=== PATIENT | female | born 1960 | race Caucasian/White ===

== ENCOUNTER 2017-11-26 22:21 | Emergency (ER) | payer MEDICAID ==
[2017-11-26 23:32] LABS: HEMATOCRIT 27.3 % (36.0-48.0); HEMOGLOBIN 8.9 g/dL (12-16); LYMPHOCYTES 11.7 % (15-50); MCHC 32.6 g/dL (31.0-37.0); MCV 88.9 fL (80.0-100.0); MEAN PLATELET VOLUME 8.4 fL (7.4-10.4); NEUTROPHILS 83.4 % (40-80); PLATELET COUNT 254 10x3/uL (130-400); RBC 3.07 10x6/uL (4.00-5.40); RDW 15.3 % (11.5-14.5)
[2017-11-26 23:47] LABS: ALBUMIN 3.2 g/dL (3.4-5.0); ALKALINE PHOSPHATASE 80 U/L (46-116); ALT (SGPT) 52 U/L (10-68); BILIRUBIN - TOTAL 0.16 mg/dL (0.2-1.3); CALC OSMOLALITY 287 mosm/kg (275-300); CALCIUM 8.6 mg/dL (8.5-10.1); CARBON DIOXIDE 20.7 mmol/L (21.0-32.0); CHLORIDE - SERUM 105 mmol/L (98-107); CREATININE - SERUM 2.1 mg/dL (0.6-1.3); GLUCOSE 178 mg/dL (74-106); POTASSIUM - SERUM 4.5 mmol/L (3.5-5.1); PROTEIN - SERUM 6.8 g/dL (6.4-8.2); SODIUM 138 mmol/L (136-145); UREA NITROGEN 34 mg/dL (7-18); eGFR NON AFRICAN AMERICAN 26 mL/min (90-120)
[2017-11-26 23:57] LABS: CKMB 0.3 U/L (0.0-3.6); CREATINE KINASE 24 UL (21-215); TROPONIN-I < 0.017 ng/mL (0.000-0.060)
== END 2017-11-27 02:40 | disposition home or self-care (01) ==
LOC: D.ER 22:21
PROVIDERS: Family Medicine
DX: R07.89 Other chest pain (principal); I71.00 Dissection of unspecified site of aorta; F15.10 Other stimulant abuse, uncomplicated; I10 Essential (primary) hypertension; E11.9 Type 2 diabetes mellitus without complications; Z79.4 Long term (current) use of insulin

== ENCOUNTER → 2018-02-05 10:05 | Outpatient (CLI) | payer MEDICAID | END | disposition home or self-care (01) | LOC: D.RAD 10:05 | DX: M54.5 Low back pain (principal); M54.6 Pain in thoracic spine ==

== ENCOUNTER 2018-04-03 19:54 | Emergency (ER) | payer MEDICAID ==
[2018-04-03 22:55] LABS: BASOPHILS 0 % (0-2); EOSINOPHILS 0.4 % (0-7); HEMATOCRIT 33.1 % (36.0-48.0); HEMOGLOBIN 9.7 g/dL (12-16); IMMATURE GRANULOCYTES 0.9 % (0-5); LYMPHOCYTES 12.7 % (15-50); MCH 23.8 pg (26.0-34.0); MCHC 29.3 g/dL (31.0-37.0); MCV 81.3 fL (80.0-100.0); MEAN PLATELET VOLUME 8.9 fL (7.4-10.4); MONOCYTES 4.7 % (2-11); NEUTROPHILS 81.3 % (40-80); PLATELET COUNT 264 10x3/uL (130-400); RBC 4.07 10x6/uL (4.00-5.40); RDW 20.1 % (11.5-14.5); WBC 7.8 10x3/uL (4.8-10.8)
[2018-04-03 23:11] LABS: APTT 22.7 SECONDS (22.8-39.4); INR 0.97 (0.85-1.17); PROTIME 12.5 SECONDS (11.6-15.0)
[2018-04-03 23:12] LABS: D-DIMER-QUANTITATIVE 0.38 ug/mLFEU (0.20-0.54)
[2018-04-03 23:26] LABS: ALBUMIN 3.1 g/dL (3.4-5.0); ALKALINE PHOSPHATASE 73 U/L (46-116); ALT (SGPT) 48 U/L (10-68); BILIRUBIN - TOTAL 0.15 mg/dL (0.2-1.3); CALC OSMOLALITY 287 mosm/kg (275-300); CALCIUM 8.4 mg/dL (8.5-10.1); CARBON DIOXIDE 23.6 mmol/L (21.0-32.0); CHLORIDE - SERUM 106 mmol/L (98-107); CREATININE - SERUM 1.6 mg/dL (0.6-1.3); GLUCOSE 144 mg/dL (74-106); POTASSIUM - SERUM 3.7 mmol/L (3.5-5.1); PROTEIN - SERUM 7.6 g/dL (6.4-8.2); SODIUM 141 mmol/L (136-145); UREA NITROGEN 23 mg/dL (7-18); eGFR NON AFRICAN AMERICAN 35 mL/min (90-120)
[2018-04-03 23:28] LABS: CKMB 0.5 U/L (0.0-3.6); CREATINE KINASE 37 UL (21-215); PRO BNP 1330 pg/mL (0-125)
[2018-04-03 23:29] LABS: TROPONIN-I < 0.017 ng/mL (0.000-0.060)
== END 2018-04-04 00:10 | disposition home or self-care (01) ==
LOC: D.ER 19:54
PROVIDERS: Family Medicine
DX: J44.1 Chronic obstructive pulmonary disease with (acute) exacerbation (principal); J20.9 Acute bronchitis, unspecified; E11.9 Type 2 diabetes mellitus without complications; Z79.4 Long term (current) use of insulin; I10 Essential (primary) hypertension; J44.9 Chronic obstructive pulmonary disease, unspecified; J45.909 Unspecified asthma, uncomplicated